=== PATIENT | male | born 1950 | race Caucasian/White ===

== ENCOUNTER → 2023-06-20 | Outpatient (CLI) | payer MEDICARE, OTHER | LOC: M LAB 09:50 | PROVIDERS: ATTEND Physician Assistant | DX: R97.20 Elevated prostate specific antigen [PSA] (principal) ==

== ENCOUNTER → 2024-01-26 | Outpatient (CLI) | payer MEDICARE, OTHER | LOC: M WUC 10:15 | PROVIDERS: ATTEND Internal Medicine | DX: M25.562 Pain in left knee (principal) ==

== ENCOUNTER → 2024-02-21 | Outpatient (REF) | payer MEDICARE, OTHER ==
[2024-02-21 17:21] LABS: PTH INTACT 84.2 PG/ML (18.5-88.0)
== END ==
LOC: M LAB REF 16:35
PROVIDERS: ATTEND Internal Medicine
DX: N18.32 Chronic kidney disease, stage 3b (principal); M15.9 Polyosteoarthritis, unspecified

== ENCOUNTER → 2025-08-21 | Outpatient (REF) | payer MEDICARE, OTHER ==
[2025-08-21 13:39] LABS: PTH INTACT 89.9 PG/ML (18.5-88.0)
[2025-08-21 13:40] LABS: IRON (FE) 73.0 UG/DL (65-175); PERCENT SATURATION 25.8 % (19.7-50.0)
== END ==
LOC: M LAB REF 12:36
PROVIDERS: ATTEND Internal Medicine
DX: N18.32 Chronic kidney disease, stage 3b (principal)